=== PATIENT | male | born 1980 | race Caucasian/White ===

== ENCOUNTER → 2020-07-05 10:25 | Outpatient (CLI) | payer OTHER, SELFPAY ==
--- NOTE | ~2020-07-05 | MR_ITS ---
EXAMINATION: MR brain/brain stem wo con DATE: 07/05/2020 11:18 INDICATION: Ocular migraine headache. TECHNIQUE: Magnetic resonance imaging (MRI) of the brain and brainstem was performed without intraven ous contrast. Sequences included sagittal and axial T1-weighted FSE, axial diffusion-weighted FS EPI, axial T2*-weighted GRE, axial T2-weighted FLAIR Propeller, and axial T2-weighted Propeller. Apparent diffusion coefficient (ADC) maps were created. COMPARISON: None. FINDINGS: There is no intracranial hemorrhage, acute infarction, or abnormal intracranial mass lesion . The ventricles are normal in size. There is mucosal thickening in the paranasal sinuses. The orbits are normal. The mastoid air cells are normal. IMPRESSION: 1. Normal brain. Reviewed, dictated and finalized at location A. IMPRESSION: 1. Normal brain.
== END ==
PROVIDERS: PCP Family Medicine; Visit Provider Family Medicine
DX: G43.809 Other migraine, not intractable, without status migrainosus (principal)
CPT/HCPCS: 70551

== ENCOUNTER 2020-08-24 13:28 | Outpatient (CLI) | payer OTHER, SELFPAY ==
--- NOTE | ~2020-08-24 | CT_ITS ---
EXAMINATION: CTA brain EXAM DATE: 08/24/2020 14:51 INDICATION: Headaches, visual disturbance. TECHNIQUE: Noncontrast head CT. Spiral CT angiogram cerebral arteries performed with intravenous in jection of 100 mL Omnipaque 350. Axial, coronal and sagittal images reviewed. Additional reformatted images created on dedicated 3-D workstation. The dose-length product (DLP) for this examination was 1066.54 mGy-cm. The exposure was tailored according to patient size, and iterative reconstruction (ASIR) was used as additional dose reduction technique. There is no prior study for comparison. FINDINGS: There is no intracranial carotid plaque or stenosis. Vertebral arteries are codominant. Th ere is left-sided posterior communicating artery dominant posterior cerebral artery. There is no dis efrain carotid or vertebral basilar arterial dissection or fibromuscular dysplasia. There are no cerebra l artery aneurysms. There is symmetric cerebral artery arborization. The sagittal, transverse and sig moid sinuses enhance normally, no venous sinus thrombosis. Internal cerebral veins also enhance tori lly. There is no acute intraparenchymal hemorrhage. No evidence of intraparenchymal brain mass lesion. N o evidence of acute infarction. There is no mass effect or midline shift. There is no obstructive hy drocephalus suspected. There are no extra-axial collections. There are no calvarial acute fractures . IMPRESSION: Unremarkable CTA brain examination. Reviewed, dictated and finalized at location B.
[2020-08-24 14:35] LABS: Estimated Glomerular Filt Rate > 60
== END 2020-08-24 13:29 | disposition home or self-care (01) ==
LOC: ANHIMG 13:34
PROVIDERS: PCP Family Medicine; Visit Provider Psychiatry & Neurology Neurology
DX: R51.9 Headache, unspecified (principal)
CPT/HCPCS: 70496; Q9967

== ENCOUNTER 2022-02-27 00:20 | Day surgery (SDC) | payer OTHER, SELFPAY ==
[2022-02-14 15:30] VITALS: BMI 28.2
--- NOTE | 2022-02-26 12:33 | WPDANESEPPF ---
Anes - Initial Pre Proc Eval Procedure: Operation Date: 02/27/22 08:00 Proposed Procedures p Esophagogastroduodenoscopy - Sukhdeep Gaspar MD Date/Time: 02/26/22 12:33 Surgeon: Sukhdeep Gaspar MD Pre Op Diagnosis: dysphagia Patient Data Age: 41 Gender: M Height: 1.7 m Weight: 81.8 kg Allergies Allergy/AdvReac Type Severity Reaction Status Date / Time No Known Allergies Allergy Verified 02/27/22 06:43 Home Medications Medication Instructions Recorded Confirmed Type escitalopram oxalate 20 mg tablet 20 mg PO DAILY 01/15/22 02/27/22 History losartan 100 mg tablet 100 mg PO DAILY 01/15/22 02/27/22 History multivitamin 1 tablet PO DAILY 01/15/22 02/27/22 History omeprazole 20 mg capsule,delayed 20 mg PO DAILY 01/15/22 02/27/22 History release Patient hx anesthesia problems: none Family hx anesthesia problems: none Results Review: All pre-operative results and documents have been reviewed as part of the pre-operative evaluation. [facility] Past Medical History Medical History (Updated 02/26/22 @ 12:33 by Suraj Mayer DO) Anxiety Depression Hypertension Overweight (BMI 25.0-29.9) Family History Family History (Updated 01/15/22 @ 10:41 by Liberty Pratt) Father Hypertension Other Cerebrovascular accident Diabetes mellitus Family history of cardiovascular disease Social History Social History Smoking status: Never smoker Alcohol intake: current Drinks per week: 14 Substance use: never Substance use type: does not use Living arrangements: with family Spiritual care concerns: No Anes - Eval Final PreProcedure Day of Procedure 02/26/22 12:33 Patient weight: overweight Heart: regular rate and rhythm Lungs: clear to auscultation and normal air movement Airway: Mallampati scale class II Neurological: alert and oriented Last oral intake: >/= 8 hours ASA classification: III Emergent: no Anesthetic plan: proceed Anesthesia type and monitoring: general GIVS and standard monitoring Results Review: All pre-operative results and documents have been reviewed as part of the pre-operative evaluation. Informed Consent: The patient's anesthetic plan and its attendant risks and benefits were discussed with the patient/family/POA. Questions were solicited and answers provided to the satisfaction of the patient/family/POA.
[2022-02-27 06:45] VITALS: BP 140/89; PULSE 51; RESP 16; TEMP 36.6; O2SAT 100; BMI 27.5
[2022-02-27] MEDS: LACTATED RINGERS 1,000 ML 150 ML IV CONT (06:59)
--- NOTE | 2022-02-27 07:49 | P.CONGI_ITS ---
Assessment and Plan Assessment and plan (1) Dysphagia: Code(s): R13.10 - Dysphagia, unspecified Status: Acute Assessment and Plan: Patient complains of difficulty swallowing with food hanging up in the subste rnal portion of the chest. 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 Likely on the basis of GE reflux. Plan is for follow-up EGD at this time. (2) GERD (gastroesophageal reflux disease): Code(s): K21.9 - Gastro-esophageal reflux disease without esophagitis Status: Acute Assessment and Plan: Patient felt to have underlying GE reflux disease. Symptoms are fairly well controlled on omeprazole 20mg p.o. daily. Plan is to reassess this dose of medicine at time of EGD. GI Consult Note Consult date/time: 02/27/22 07:49 HPI: Bernard Brennan is a 41 year old male complains of difficulty swallowing. Patient has a history of GE reflux and esophageal web dilated in 2014. Patient more recently has noticed some substernal burning. Worse with eating spicy foods. Occasionally food will hang up in the mid sternal chest. Patient denies any weight loss. He has had no bleeding. States symptoms have improved somewhat recently. Patient presents today for follow-up EGD given his dysphagia. Review of Systems Review of Systems: All systems reviewed & are unremarkable except as noted in HPI and below PMFSH Past Medical History Medical History (Updated 02/27/22 @ 07:50 by Sukhdeep Gaspar MD) Anxiety Depression Hypertension Overweight (BMI 25.0-29.9) Family History Family History (Updated 01/15/22 @ 10:41 by Liberty Pratt) Father Hypertension Other Cerebrovascular accident Diabetes mellitus Family history of cardiovascular disease Social History Social History Smoking status: Never smoker Alcohol intake: current Drinks per week: 14 Substance use: never Substance use type: does not use Living arrangements: with family Spiritual care concerns: No Meds Home Medications and Allergies Home Medications Medication Instructions Recorded Confirmed Type escitalopram oxalate 20 mg tablet 20 mg PO DAILY 01/15/22 02/27/22 History losartan 100 mg tablet 100 mg PO DAILY 01/15/22 02/27/22 History multivitamin 1 tablet PO DAILY 01/15/22 02/27/22 History omeprazole 20 mg capsule,delayed 20 mg PO DAILY 01/15/22 02/27/22 History release Allergies Allergy/AdvReac Type Severity Reaction Status Date / Time No Known Allergies Allergy Verified 02/27/22 06:43 Vital Signs Vital Signs - 24 hr 02/27/22 06:45 Temperature 97.8 F Pulse Rate 51 L Respiratory Rate 16 Blood Pressure 140/89 Pulse Oximetry 100 Exam Narrative: Physical exam reveals patient be alert. Vital signs stable. HEENT exam is unremarkable. Patient is anicteric. Lungs are clear to auscultation and percussion. Heart is without murmur or extra sounds. Abdominal exam bowel sounds are present soft nontender with no hepatosplenomegaly. Digital external rectal exam is normal.
[2022-02-27 08:11] VITALS: BP 104/72; PULSE 55; RESP 16; O2SAT 97
[2022-02-27 08:21] VITALS: BP 123/85; PULSE 52; RESP 20; O2SAT 98
[2022-02-27 08:31] VITALS: BP 132/88; PULSE 54; RESP 18; O2SAT 98
== END 2022-02-27 08:40 | disposition home or self-care (01) ==
PROVIDERS: PCP Family Medicine Sports Medicine; Visit Provider Internal Medicine Gastroenterology
PROC: 0DJ08ZZ Inspection of Upper Intestinal Tract, Via Natural or Artificial Opening Endoscopic (ICD-10-PCS; CPT 43235; principal; 2022-02-27 08:00)
DX: R13.10 Dysphagia, unspecified (principal); K21.9 Gastro-esophageal reflux disease without esophagitis; I10 Essential (primary) hypertension; F41.9 Anxiety disorder, unspecified; F32.A Depression, unspecified
CPT/HCPCS: 43239; 43450; 87081; J2001; J2704; J7120

== ENCOUNTER 2022-07-25 22:44 | Emergency (ER) | payer OTHER, SELFPAY ==
[2022-07-25 22:54] VITALS: BP 143/85; PULSE 67; RESP 16; TEMP 36.3; O2SAT 100
== END 2022-07-25 23:10 | disposition left against medical advice (07) ==
DX: R14.0 Abdominal distension (gaseous) (principal)
CPT/HCPCS: 99199

== ENCOUNTER 2024-06-24 06:14 | Day surgery (SDC) | payer OTHER, SELFPAY ==
[2024-05-20 14:37] VITALS: BMI 29.1
[2024-06-16 13:45] VITALS: BMI 28.3
[2024-06-24 06:57] VITALS: BP 108/78; PULSE 61; RESP 15; TEMP 36.6; O2SAT 61; BMI 27.8
[2024-06-24] MEDS: LACTATED RINGERS 1,000 ML 150 ML IV CONT (07:06)
--- NOTE | 2024-06-24 07:16 | PM.HPGS ---
History of Present Illness History of Present Illness Consent: Risks, benefits, and alternatives have been discussed and questions answered. Patient agrees to proceed with procedure. Chief complaint: Neoplasm Screening Narrative: Bernard Brennan is a 43 year old male presents for screening colonoscopy. Patient's current weight appetite and bowel movements are normal. He denies abdominal pain. Patient has had no bleeding. Family history noncontributory. Review of Systems Review of Systems: All systems reviewed & are unremarkable except as noted in HPI and below PMFSH Past Medical History Medical History (Updated 06/24/24 @ 07:18 by Sukhdeep Gaspar MD) Anxiety Depression Hypertension Overweight (BMI 25.0-29.9) Family History Family History (Updated 01/15/22 @ 10:41 by Liberty Pratt) Father Hypertension Other Cerebrovascular accident Diabetes mellitus Family history of cardiovascular disease Social History Social History Smoking status: Never smoker Alcohol intake: current Drinks per week: 20 Alcohol use details: beer Substance use: never Substance use type: does not use Living arrangements: with family Spiritual care concerns: No Meds Home Medications and Allergies Home Medications Medication Instructions Recorded Confirmed Type escitalopram oxalate 20 mg tablet 20 mg PO DAILY 01/15/22 06/24/24 History losartan 100 mg tablet 100 mg PO DAILY 01/15/22 06/24/24 History multivitamin 1 tablet PO DAILY 01/15/22 06/24/24 History omeprazole 20 mg capsule,delayed 20 mg PO DAILY 01/15/22 06/24/24 History release levothyroxine 50 mcg tablet 50 mcg PO DAILY 06/16/24 06/24/24 History mecobalamin (vitamin B12) 2,500 2,500 mcg PO DAILY 06/16/24 06/24/24 History mcg chewable tablet Allergies Allergy/AdvReac Type Severity Reaction Status Date / Time No Known Allergies Allergy Verified 06/24/24 06:55 Vital Signs Vital Signs - 24 hr 06/24/24 06:57 Temperature 97.8 F Pulse Rate 61 Respiratory Rate 15 Blood Pressure 108/78 Pulse Oximetry 61 L Oxygen Delivery Room Air Exam Narrative: Physical exam reveals patient to be alert. Vital signs stable. HEENT exam is unremarkable. Patient is anicteric. Lungs are clear to auscultation and percussion. Heart is without murmur or extra sounds. Abdomen bowel sounds are present soft nontender with no organomegaly external rectal exam normal. Assessment and Plan Assessment and plan (1) Screen for colon cancer: Code(s): Z12.11 - Encounter for screening for malignant neoplasm of colon Status: Acute Assessment and Plan: Patient presents today for neoplasia screening colonoscopy. Additional recommendations is may be given after endoscopy.
--- NOTE | 2024-06-24 07:17 | P.PNAN_ITS ---
Anes - Initial Pre Proc Eval Procedure: Operation Date: 06/24/24 08:00 Proposed Procedures p Screening Colonoscopy - Sukhdeep Gaspar MD Date/Time: 06/24/24 07:17 Surgeon: Sukhdeep Gaspar MD Pre Op Diagnosis: Neoplasm Screening Patient Data Age: 43 Gender: M Height: 1.7 m Weight: 80.7 kg Last Vital Signs Temp 36.6 C 06/24/24 06:57 Pulse 61 06/24/24 06:57 Resp 15 06/24/24 06:57 BP 108/78 06/24/24 06:57 Pulse Ox 61 L 06/24/24 06:57 O2 Del Method Room Air 06/24/24 06:57 Allergies Allergy/AdvReac Type Severity Reaction Status Date / Time No Known Allergies Allergy Verified 06/24/24 06:55 Home Medications Medication Instructions Recorded Confirmed Type escitalopram oxalate 20 mg tablet 20 mg PO DAILY 01/15/22 06/24/24 History losartan 100 mg tablet 100 mg PO DAILY 01/15/22 06/24/24 History multivitamin 1 tablet PO DAILY 01/15/22 06/24/24 History omeprazole 20 mg capsule,delayed 20 mg PO DAILY 01/15/22 06/24/24 History release levothyroxine 50 mcg tablet 50 mcg PO DAILY 06/16/24 06/24/24 History mecobalamin (vitamin B12) 2,500 2,500 mcg PO DAILY 06/16/24 06/24/24 History mcg chewable tablet Patient hx anesthesia problems: none Family hx anesthesia problems: none Results Review: All pre-operative results and documents have been reviewed as part of the pre- operative evaluation. [facility] Past Medical History Medical History Anxiety Depression Hypertension Overweight (BMI 25.0-29.9) Family History Family History Father Hypertension Other Cerebrovascular accident Diabetes mellitus Family history of cardiovascular disease Social History Social History Smoking status: Never smoker Alcohol intake: current Drinks per week: 20 Alcohol use details: beer Substance use: never Substance use type: does not use Living arrangements: with family Spiritual care concerns: No Anes - Eval Final PreProcedure Day of Procedure 06/24/24 07:17 Patient weight: overweight Heart: regular rate and rhythm Lungs: clear to auscultation Airway: Mallampati scale class II Neurological: alert and oriented Last oral intake: >/= 8 hours ASA classification: II Emergent: no Anesthetic plan: proceed Anesthesia type and monitoring: general GIVS and standard monitoring Results Review: All pre-operative results and documents have been reviewed as part of the pre- operative evaluation. Informed Consent: The patient's anesthetic plan and its attendant risks and benefits were discussed with the patient/family/POA. Questions were solicited and answers provided to the satisfaction of the patient/family/POA.
[2024-06-24 08:00] VITALS: BP 98/63; PULSE 56; RESP 15; O2SAT 98
[2024-06-24 08:06] VITALS: BP 104/70; PULSE 49; RESP 16; O2SAT 100
[2024-06-24 08:16] VITALS: BP 100/73; PULSE 54; RESP 18; O2SAT 98
--- NOTE | 2024-06-24 08:39 | WPDANESPN ---
Anes - Prog Note Post-Op Date/Time: 06/24/24 08:39 Cardiovascular status: normal Respiratory status: normal Airway patency: baseline Mental status: baseline Post-Op hydration status: normal Vital Signs: Last Vital Signs Temp 36.6 C 06/24/24 06:57 Pulse 54 L 06/24/24 08:16 Resp 18 06/24/24 08:16 BP 100/73 06/24/24 08:16 Pulse Ox 98 06/24/24 08:16 O2 Del Method Room Air 06/24/24 08:16 Pain Score (VAS): 0/10 I/O: Intake & Output 06/23/24 06/24/24 06/24/24 23:59 07:59 15:59 Intake Total 500 100 Balance 500 100 Patient Feedback: Patient satisfied with anesthetic care.
== END 2024-06-24 08:20 | disposition home or self-care (01) ==
PROVIDERS: PCP Family Medicine; Visit Provider Internal Medicine Gastroenterology
PROC: 0DJD8ZZ Inspection of Lower Intestinal Tract, Via Natural or Artificial Opening Endoscopic (ICD-10-PCS; CPT 45378; principal; 2024-06-24 08:00)
DX: Z12.11 Encounter for screening for malignant neoplasm of colon (principal)
CPT/HCPCS: 45378

== ENCOUNTER 2025-10-25 10:09 | Outpatient (CLI) | payer OTHER, SELFPAY ==
--- NOTE | ~2025-10-25 | MR_ITS ---
EXAMINATION: MR shoulder LT wo con DATE: 10/25/2025 10:43 INDICATION: Left shoulder pain TECHNIQUE: Magnetic resonance imaging (MRI) of the left shoulder was performed without intravenous contrast. Sequences included axial PD-weighted FS FSE, coronal oblique PD-weighted FS FSE, coronal oblique T2-weighted FS FSE, sagittal PD-weighted FS FSE, and sagittal T1-weighted SE. COMPARISON: None. FINDINGS: Coracoacromial arch: The acromion undersurface is curved in morphology (type II). The coracoacromial ligament is normal. Mild acromioclavicular osteoarthritis. There is mild subarticular edema-like and cystlike changes along the lateral head of the clavicle which could be seen in setting of distal clavicular osteolysis. Rotator cuff: The supraspinatus, infraspinatus and teres minor tendons are normal. The subscapularis tendon is normal. Normal rotator cuff muscle bulk and signal. Biceps tendon, glenoid labrum and glenohumeral cartilage: Long head of the biceps tendon is normal. Glenoid labrum is normal. Glenohumeral cartilage is normal. Fluid: Physiologic amount of fluid in the glenohumeral joint and biceps tendon sheath. No loose osteochondral bodies. No abnormal increased fluid signal in the subacromial/subdeltoid bursa to suggest bursitis. Bones: No fracture or pathologic marrow replacing process. IMPRESSION: 1. Mild left mid clavicular osteoarthritis with asymmetric subarticular cystlike and edema-like signal changes at the clavicular side of the joint space suggesting possible distal clavicular osteolysis which can be seen in the setting of prior trauma or repetitive microtrauma classically described with weight lifting. Reviewed, dictated and finalized at location A. [employer] IMPRESSION: 1. Mild left mid clavicular osteoarthritis with asymmetric subarticular cystlik e and edema-like signal changes at the clavicular side of the joint space sugge sting possible distal clavicular osteolysis which can be seen in the setting of prior trauma or repetitive microtrauma classically described with weight lifti ng.
== END 2025-10-25 10:10 | disposition home or self-care (01) ==
LOC: MICIMG 10:10
PROVIDERS: PCP Physician Assistant Surgical; Visit Provider Physician Assistant Surgical
DX: M19.012 Primary osteoarthritis, left shoulder (principal)
CPT/HCPCS: 73221